=== PATIENT | female | born 1965 | race Caucasian/White ===

== ENCOUNTER 2019-02-11 09:50 | Inpatient (IN) | payer BC, OTHER ==
[~2019-02-11] VITALS: Ht 157.5 cm; Wt 53.1 kg
[2019-02-11 10:00] VITALS: BP_SYST 122
--- NOTE | 2019-02-11 10:50 | NUR ---
Patient triaged and placed in ER bed 6. VSS and patient appears in no acute distress at this time. Accompanied by and medical care manager, notified of need for ER evaluation
[2019-02-11 10:58] LABS: BASOPHILS % (AUTO) 0.1 % (0.0-2.0); EOSINOPHILS % (AUTO) 0.2 % (0.0-4.0); HEMATOCRIT 41.8 % (36-48); HEMOGLOBIN 13.7 g/dL (12.0-16.0); LYMPHOCYTES # (AUTO) 1.1 K/uL (1.0-5.5); LYMPHOCYTES % (AUTO) 10.3 % (20.5-51.5); MEAN CORPUSCULAR HEMOGLOBIN 29 pg (27-31); MEAN CORPUSCULAR HGB CONC 33 % (32-36); MEAN CORPUSCULAR VOLUME 90 fL (79.0-98.0); MONOCYTES # (AUTO) 0.5 K/uL (0.0-1.0); MONOCYTES % (AUTO) 4.8 % (1.7-9.3); NEUTROPHILS # (AUTO) 9.4 K/uL (1.8-7.7); NEUTROPHILS % (AUTO) 84.6 % (40.0-70.0); PLATELET COUNT (AUTO) 395 K/uL (130-430); RED BLOOD CELL COUNT(AUTO) 4.67 MIL/uL (4.2-6.2); RED CELL DISTRIBUTION WIDTH 13.7 % (9.0-15.0); WHITE BLOOD COUNT (AUTO) 11.1 K/uL (4.8-10.8)
[2019-02-11 10:59] LABS: ANION GAP 10 (5-15); CALCIUM 9.8 mg/dL (8.4-11.0); CHLORIDE 104 mmol/L (98-107); CREATININE 0.78 mg/dL (0.55-1.30); GLUCOSE 117 mg/dL (70-99); SODIUM SERUM 142 mmol/L (136-145); UREA NITROGEN, BLOOD 11 mg/dL (8-21)
[2019-02-11 11:01] LABS: GFR AFRICAN AMERICAN 99 mL/min (>90)
--- NOTE | 2019-02-11 11:02 | NUR ---
Patient comes to ER in personal vehicle, accompanied by and caregiver, patient is AOx1 with early onset alzheimers, verbal and ambulatory. Patient has complaint of pain on LT lower leg radiating up to back area. Full ROM, pulses palpable and regular. No redness or heat noted. No other complaint or injury at this time.
[2019-02-11 11:08] LABS: ALANINE AMINOTRANSFERASE 21 U/L (12-78); ALBUMIN 3.9 g/dL (3.4-4.8); ASPARTATE AMINOTRANSFERASE 30 U/L (10-37); TOTAL BILIRUBIN 0.4 mg/dL (0.0-1.0)
--- NOTE | 2019-02-11 11:20 | NUR ---
DR KHAN at bedside for ER evaluation
--- NOTE | 2019-02-11 12:00 | NUR ---
16# FR In and Out catheter with use of sterile technique. Immediate return of 100 ml urine noted. Urine sample collected and sent to lab. Pt tolerated procedure . Patient unable to toilet self.
[2019-02-11 12:13] LABS: BILIRUBIN,URINE NEGATIVE (NEGATIVE); COLOR,URINE YELLOW (YELLOW); GLUCOSE,URINE NEGATIVE (NEGATIVE); KETONES,URINE 1+ (NEGATIVE); LEUKOCYTE ESTERASE ,URINE 1+ (NEGATIVE); NITRITE, URINE NEGATIVE (NEGATIVE); PROTEIN URINE NEGATIVE (NEGATIVE); UROBILINOGEN,URINE 0.2 (0.2-1.0)
[2019-02-11 12:15] LABS: BLOOD, URINE TRACE (NEGATIVE); CLARITY/URINE HAZY (CLEAR)
[2019-02-11 12:20] LABS: BACTERIA,URINE MODERATE /HPF (None Seen); MUCUS,URINE 1+ /LPF (None Seen)
[2019-02-11] MEDS ORDERED: NACL 0.9% 1,000 ML IV ONE ×2 (13:15→16:00)
[2019-02-11] MEDS ORDERED: cefTRIAXone 1 GM IVPB PREMIX 50 ML IV ONE (13:15)
--- NOTE | 2019-02-11 13:30 | NUR ---
Patient resting in bed, caregive is at bedside, no signs of distress noted, will continue to monitor.
--- NOTE | 2019-02-11 15:00 | NUR ---
Patient is resting in bed, no signs of distress noted, will continue to monitor.
[2019-02-11] MEDS ORDERED: VANCOMYCIN HCL 1,000 MG in NS 250 ML IV ONE (16:00)
--- NOTE | 2019-02-11 16:30 | NUR ---
Medicated per MD orders. IVF infusing with no s/s of infiltration at this time. Will cont to monitor
[2019-02-11] MEDS ORDERED: VANCOMYCIN HCL 1000 MG/VIAL IV ONE (17:54)
--- NOTE | 2019-02-11 18:00 | NUR ---
Patient resting in bed, caregiver at bedside, no signs of distress noted, will continue to monitor.
--- NOTE | 2019-02-11 19:11 | NUR ---
ADMIT NOTE Received pt from ER to the floor with a diagnosis of UTI POS SEPSIS. Admission process initiated. patient oriented to pain management, safety and call light-teach back done.
--- NOTE | 2019-02-11 19:20 | NUR ---
Patient admitted to care of DR Romo. Admitted to [facility] unit. Patient placed in [facility] bed 102A, tolerated well with minimal discomfort, patient showing no signs of distress. Belongings list completed. Summary report printed. Bedside report given and plan of care endorsed to [facility] RN.
--- NOTE | 2019-02-11 19:30 | NUR ---
OPENING NOTE Patient and bedside report was received from day shift nurse. Patient is AAO x 3, resting in bed with no s/s of acute distress. Sister in law, Eliz, at bedside. Plan of care discussed. Safety and fall precautions in place. Bed alarm on. Call light with patient, educated and encouraged pt. on how to use. Will continue to monitor.
[2019-02-11] MEDS ORDERED: OLAN2.5T29 PO (19:35)
[2019-02-11] MEDS ORDERED: MECL12.584 PO (19:35)
[2019-02-11] MEDS ORDERED: CITA40TA22 PO (19:35)
[2019-02-11] MEDS ORDERED: MEMA5TAB PO (19:35)
--- NOTE | 2019-02-11 19:35 | NUR ---
HOME MED LIST COLLECTED AND RECORDED Patient's home medication list was requested; patient's sister in law, Eliz at bedside, stated she had the patient's medication bottles and belongings she was going to take home. Medications were recorded in patient's EMR.
[2019-02-11 19:56] VITALS: BP_SYST 116
[2019-02-11] MEDS ORDERED: KCL 20 mEq in D5/0.45NS 1000mL 1,000 ML IV ONE (19:56)
[2019-02-11 20:00] VITALS: BP_SYST 116
[2019-02-11] MEDS: KCL 20 mEq in D5/0.45NS 1000mL 1,000 ML IV SCH (20:35)
--- NOTE | 2019-02-11 20:35 | NUR ---
IV FLUIDS Patient's IV fluids were administered as ordered. Educated pt. regarding IVF. See EMAR. Family at bedside. Encouraged call light use for any needs. Will continue with plan of care.
--- NOTE | 2019-02-11 22:00 | NUR ---
ADVANCED DIRECTIVE Requested patient's spouse, Seferino, to bring a copy of the advanced directive.
[2019-02-11] MEDS ORDERED: CEFEPIME 1 GM/VIAL (MAXIPIME) ONE (23:40)
[2019-02-12] MEDS: CEFEPIME 1 GM in D5W 50 ML IV SCH ×4 (00:27→21:24)
--- NOTE | 2019-02-12 00:27 | NUR ---
IV ABX IV abx administered as ordered. See EMAR for details.
--- NOTE | 2019-02-12 02:06 | NUR ---
SLEEPING Patient is sleeping at this time, visible chest rise and fall. No s/s of acute distress. Safety and fall precautions in place. Bed alarm on. Call light with patient. Will monitor.
[2019-02-12 03:59] VITALS: BP_SYST 120
[2019-02-12] MEDS ORDERED: CEFEPIME 1 GM/VIAL (MAXIPIME) ONE (04:17)
--- NOTE | 2019-02-12 04:34 | NUR ---
SLEEPING Patient appears to be sleeping, visible chest rise and fall. No s/s of acute distress. Safety and fall precautions are in place. Bed alarm on. Call light with patient. Will monitor.
[2019-02-12] MEDS: KCL 20 mEq in D5/0.45NS 1000mL 1,000 ML IV SCH ×2 (06:01→11:47)
[2019-02-12 07:13] LABS: BASOPHILS % (AUTO) 0.3 % (0.0-2.0); EOSINOPHILS # (AUTO) 0.1 K/uL (0.0-0.4); EOSINOPHILS % (AUTO) 1.3 % (0.0-4.0); HEMATOCRIT 34.6 % (36-48); HEMOGLOBIN 11.4 g/dL (12.0-16.0); LYMPHOCYTES # (AUTO) 2.1 K/uL (1.0-5.5); LYMPHOCYTES % (AUTO) 33.2 % (20.5-51.5); MEAN CORPUSCULAR HEMOGLOBIN 30 pg (27-31); MEAN CORPUSCULAR HGB CONC 33 % (32-36); MEAN CORPUSCULAR VOLUME 90 fL (79.0-98.0); MONOCYTES # (AUTO) 0.5 K/uL (0.0-1.0); MONOCYTES % (AUTO) 8.2 % (1.7-9.3); NEUTROPHILS # (AUTO) 3.6 K/uL (1.8-7.7); PLATELET COUNT (AUTO) 305 K/uL (130-430); RED BLOOD CELL COUNT(AUTO) 3.85 MIL/uL (4.2-6.2); WHITE BLOOD COUNT (AUTO) 6.2 K/uL (4.8-10.8)
[2019-02-12 07:22] LABS: CALCIUM 8.2 mg/dL (8.4-11.0); CREATININE 0.68 mg/dL (0.55-1.30); POTASSIUM 3.7 mmol/L (3.5-5.1)
--- NOTE | 2019-02-12 07:50 | NUR ---
am notes received pt in bed. a/ox2. vitals stable. not in acute distress. ivf infusing well. repositioned with pillow.res even and unlabored. sr on tele. safety and fall precautions in place. needs attended. kept comfortable. will continue to monitor
[2019-02-12 07:56] VITALS: BP_SYST 112
[2019-02-12] MEDS: MECLIZINE HCL 25 MG TABLET (ANITVERT) PO SCH ×2 (08:46→21:25)
[2019-02-12] MEDS: OLANZapine 2.5 MG TABLET PO SCH (08:46)
[2019-02-12] MEDS: CITALOPRAM HYDROBROMIDE 20 MG TABLET PO SCH (08:46)
[2019-02-12] MEDS: MEMANTINE HCL 5 MG TABLET PO SCH ×2 (08:46→21:25)
[2019-02-12 11:17] VITALS: BP_SYST 113
--- NOTE | 2019-02-12 11:49 | NUR ---
rounds pt stable. no s/s of pain or distress. pt cleaned and repositioned. not in acute distres. kept comfortable will continue to m onitor
[2019-02-12 15:23] VITALS: BP_SYST 95
--- NOTE | 2019-02-12 16:10 | NUR ---
rounds pt stable . denies any pain or orther discomfort. pt is incontinent. pt cleaned and repositioned. ivf infusing well as ordered. due antibiotic given as ordered. no reaction noted. will continue to monitor
--- NOTE | 2019-02-12 19:20 | NUR ---
closing notes pt stable . denies any pain or orther discomfort. pt is incontinent. pt cleaned and repositioned. ivf infusing well as ordered. report given to night rn
[2019-02-12 20:10] VITALS: BP_SYST 123
--- NOTE | 2019-02-12 20:33 | NUR ---
PATIENT AWAKE ALERT SITTING UP IN BED Family @ the bedside , PT verbally indicative on mech soft po diet HOB elevated assist as needed chest movement SYMMETRICAL unlabored skin dry warm .
[2019-02-13 00:31] VITALS: BP_SYST 108
[2019-02-13] MEDS: KCL 20 mEq in D5/0.45NS 1000mL 1,000 ML IV SCH (06:34)
[2019-02-13] MEDS: CEFEPIME 1 GM in D5W 50 ML IV SCH ×2 (06:35→14:20)
[2019-02-13 08:00] VITALS: BP_SYST 128
--- NOTE | 2019-02-13 08:00 | NUR ---
RN NOTE PATIENT IS RESTING IN BED, ALERT ORIENTED X2, PATIENT IS DEMENTED. OPEN EYES. DENIES PAIN OR DISCOMFORT. PATIENT VITAL SIGNS WERE MEASURED. PATIENT WAS ASSESSED, BED ALARM IS ON, BED AT LOW POSITION AND CALL LIGHT WITHIN REACH, WILL CONTINUE TO MONTIR
[2019-02-13] MEDS: OLANZapine 2.5 MG TABLET PO SCH (09:10)
[2019-02-13] MEDS: MEMANTINE HCL 5 MG TABLET PO SCH (09:10)
[2019-02-13] MEDS: CITALOPRAM HYDROBROMIDE 20 MG TABLET PO SCH (09:10)
[2019-02-13] MEDS: MECLIZINE HCL 25 MG TABLET (ANITVERT) PO SCH (09:11)
--- NOTE | 2019-02-13 10:00 | NUR ---
RN NOTE PATIENT IS RESTING IN BED, DENIES PAIN OR DISCOMFORT. PATIENT WAS REPOSITIONED IN BED, BED SHEETS AND CHUCKS WERE CHANGED. PATIENT WAS GIVEN HER MEDICATIONS. WILL CONTINUE TO MONITOR.
[2019-02-13 11:31] VITALS: BP_SYST 129
--- NOTE | 2019-02-13 11:45 | NUR ---
Nutrition Update Panda Scale 18 noted. Pt admitted for sepsis, possible UTI. Diet: mechanical soft BMI: 21.4 kg/m2 RD to follow per nutrition care standards.
--- NOTE | 2019-02-13 12:00 | NUR ---
RN NOTE PATIENT WAS SERVED HER LUNCH, PATIENT WAS GIVEN HER REGLAN IVP WHEN ORDERED. PATIENT NOW DENIES NAUSEA AND HAS NO VOMITING SINCE THEN, WILL SERVE HER CLEAR LIQUID DIET AND IF TOLERATED IT WILL ADVANCE THE DIET. PATIENT DRESSING ON HER LEFT FOREARM WAS CHANGED. PLEASE REFER TO WOUND CARE SECTION. WILL CONTINUE TO MONITOR.
--- NOTE | 2019-02-13 14:00 | NUR ---
RN NOTE PATIENT IS RESTING IN BED, BY BEDSIDE, PATIENT WAS INFORMED ABOUT THEIR BEING DISCHARGED HOME, PATIENT DENIES PAIN OR DISCOMFORT. PATIENT WAS EDUCATED ABOUT FALL PREVENTION, WILL CONTINUE TO MONITOR.
[2019-02-13 15:21] VITALS: BP_SYST 97
[2019-02-13 16:20] VITALS: BP_SYST 119
--- NOTE | 2019-02-13 16:55 | NUR ---
RN CLOSING NOTE PATIENT IS RESTING IN BED, BY BEDSIDE, PATIENT WAS GIVEN HER DISCHARGE INSTRUCTION REGARDING CONTACTING HER PRIMARY CARE PHYSICIAN, PREFERED THAT HE MAKES THE APPOINTMENT BY HIMSELF. PATIENT SALINE LOCK WAS REMOVED A BANDAGE WAS PLACED IN PLACE. NO BLEEDING FROM THE SITE. PATIENT WAS THEN EXPLAINED HER DISCHARGE INSTRUCTION AND WAS EDUCATED WITH HER OF HOW TO MINIMIZE THE CHANCE OF GETTING UTI. PATIENT WAS THEN ESCORTED TO THE PARKING LOT WHERE THE PATIENT GOT IN HER PRIVATE AUTO DRIVEN HOME BY HER AND PHILLIP Doan SIGN OFF PATIENT 'S CARE.
--- NOTE | 2019-02-17 15:05 | NUR ---
Discharge Follow Up Phone Call GAMBLING [employer]ER phoned the number listed for patient, , and spoke with patient's caregiver. She stated that patient was back to baseline. She was unsure if a follow up appointment had been made with patient's PCP. She will ask patient's . No questions or concerns.
== END 2019-02-13 16:55 | disposition home or self-care (01) | DRG 689 ==
LOC: SED 09:50 → STU 17:56 → SMU 02-12 13:56
PROVIDERS: ADMIT Family Medicine; ATTEND Family Medicine
DX: N39.0 Urinary tract infection, site not specified (principal); G93.41 Metabolic encephalopathy; E86.0 Dehydration; D64.9 Anemia, unspecified; G30.9 Alzheimer's disease, unspecified; F02.80 Dementia in other diseases classified elsewhere, unspecified severity, without behavioral disturbance, psychotic disturbance, mood disturbance, and anxiety
CPT/HCPCS: 36415; 71045; 72170-TC; 72192-TC; 73552; 80048; 80053; 81000-TC; 83605; 84484; 85025; 85379; 85610-TC; 85730-TC; 87040-TC; 87086; 93005; 96365; 96366; 96367; 97112-GP; 97163; 99285; G0378; J0692; J0696; J3370; J7060; J8597

== ENCOUNTER 2019-05-09 06:55 | Inpatient (IN) | payer BC ==
[~2019-05-09] VITALS: Ht 157.5 cm; Wt 59.0 kg
[~2019-05-09 06:55] MED LIST: CITA40TA22 PO; MECL12.584 PO; MEMA5TAB PO; OLAN2.5T29 PO
[2019-05-09 07:00] VITALS: BP_SYST 134
[2019-05-09] MEDS ORDERED: NACL 0.9% 1,000 ML IV ONE (07:00)
[2019-05-09] MEDS ORDERED: levETIRAcetam 1,000 MG IV BAG 100 ML IV ONE (07:00)
--- NOTE | 2019-05-09 07:00 | NUR ---
Placed in room 2 . Placed on benzene operator, blood pressure machine and pulse oximeter. To gown for exam. Side rails up.
--- NOTE | 2019-05-09 07:00 | NUR ---
Seizure precautions in place. Seizure pads applied to gurney. Side rails up.
--- NOTE | 2019-05-09 07:05 | NUR ---
Medication reconciliation completed with information provided by family. Any prior medication reconciliation on file was reviewed and corrected.
--- NOTE | 2019-05-09 07:10 | NUR ---
PT BIB EMS C/O SEIZURE ACTIVITY.PT H/O DEMENTIA AND SEIZURE.PT IS POSTICTAL UNABLE TO STATE EVENTS PRIOR TO SEIZURE.
--- NOTE | 2019-05-09 07:25 | NUR ---
# 14 FR In and Out catheter with use of sterile technique. Ary phleb at bedside as maribeth. Immediate return of 20 ml clear yellow urine noted. Urine sample collected and sent to lab. Pt tolerated procedure well. Patient unable to toilet self.
[2019-05-09] MEDS ORDERED: levETIRAcetam 1,000 MG in NS 100 ML IV ONE (07:30)
[2019-05-09 07:36] LABS: BASOPHILS % (AUTO) 0.6 % (0.0-2.0); EOSINOPHILS # (AUTO) 0.2 K/uL (0.0-0.4); EOSINOPHILS % (AUTO) 2.6 % (0.0-4.0); HEMATOCRIT 38.5 % (36-48); HEMOGLOBIN 12.8 g/dL (12.0-16.0); LYMPHOCYTES # (AUTO) 2.2 K/uL (1.0-5.5); MEAN CORPUSCULAR HEMOGLOBIN 30 pg (27-31); MEAN CORPUSCULAR HGB CONC 33 % (32-36); MEAN CORPUSCULAR VOLUME 90 fL (79.0-98.0); MONOCYTES # (AUTO) 0.5 K/uL (0.0-1.0); MONOCYTES % (AUTO) 6.8 % (1.7-9.3); NEUTROPHILS # (AUTO) 4.1 K/uL (1.8-7.7); PLATELET COUNT (AUTO) 340 K/uL (130-430); RED BLOOD CELL COUNT(AUTO) 4.27 MIL/uL (4.2-6.2); RED CELL DISTRIBUTION WIDTH 13.5 % (9.0-15.0)
[2019-05-09 07:47] LABS: ANION GAP 5 (5-15); CALCIUM 9.1 mg/dL (8.4-11.0); CHLORIDE 105 mmol/L (98-107); CREATININE 0.75 mg/dL (0.55-1.30); GLUCOSE 87 mg/dL (70-99); POTASSIUM 4.2 mmol/L (3.5-5.1); SODIUM SERUM 137 mmol/L (136-145); UREA NITROGEN, BLOOD 14 mg/dL (8-21)
[2019-05-09 07:48] LABS: GFR AFRICAN AMERICAN 103 mL/min (>90)
--- NOTE | 2019-05-09 07:49 | NUR ---
ER at bedside examining patient.
[2019-05-09 07:52] LABS: ALANINE AMINOTRANSFERASE 33 U/L (12-78); ALBUMIN 3.4 g/dL (3.4-4.8); ASPARTATE AMINOTRANSFERASE 22 U/L (10-37); TOTAL BILIRUBIN 0.3 mg/dL (0.0-1.0)
[2019-05-09 07:53] LABS: BILIRUBIN,URINE NEGATIVE (NEGATIVE); BLOOD, URINE 1+ (NEGATIVE); CLARITY/URINE CLEAR (CLEAR); COLOR,URINE YELLOW (YELLOW); GLUCOSE,URINE NEGATIVE (NEGATIVE); KETONES,URINE NEGATIVE (NEGATIVE); LEUKOCYTE ESTERASE ,URINE NEGATIVE (NEGATIVE); NITRITE, URINE NEGATIVE (NEGATIVE); PH,URINE 5.5 (5.0-8.0); PROTEIN URINE NEGATIVE (NEGATIVE); UROBILINOGEN,URINE 0.2 (0.2-1.0)
[2019-05-09 07:57] LABS: ALCOHOL, BLOOD < 3 mg/dL (<10)
--- NOTE | 2019-05-09 08:00 | NUR ---
Pt tolerated medciation well. continuing to monitor
[2019-05-09 08:03] LABS: BACTERIA,URINE FEW /HPF (None Seen); MUCUS,URINE 1+ /LPF (None Seen); WBC,URINE 0-3 /HPF (0-3)
[2019-05-09 08:05] LABS: BARBITURATE, URINE NEGATIVE (NEG <=200); BENZODIAZEPINE, URINE NEGATIVE (NEG <=150); CANNABINOID, URINE NEGATIVE (NEG <=50); COCAINE, URINE NEGATIVE (NEG <=150); METHAMPHETAMINES SCREEN,URINE NEGATIVE (NEG <=500); OPIATE, URINE NEGATIVE (NEG <=100); PHENCYCLIDINE SCREEN,URINE NEGATIVE (NEG <=25); UR TRICYCLIC ANTIDEPRESSANTS NEGATIVE (NEG <=300); URINE AMPHETAMINE NEGATIVE (NEG <=500); URINE METHADONE NEGATIVE (NEG <=200); URINE OXYCODONE SCREEN NEGATIVE (NEG <=100); URINE PROPOXYPHENE SCREEN NEGATIVE (NEG <=300)
--- NOTE | 2019-05-09 09:15 | NUR ---
Patient will be admitted to care of . Admitted to medsurg unit. Will go to room 135. Summary report printed. Report will be given at bedside.
--- NOTE | 2019-05-09 09:45 | NUR ---
ADMIT NOTE Received pt from ER to the floor with a diagnosis of SEIZURE. Admission process initiated. patient oriented to pain management, safety and call light-teach back done.
[2019-05-09 10:05] VITALS: BP_SYST 142
--- NOTE | 2019-05-09 10:22 | NUR ---
opening note report was endorsed by admission nurse. Patient appears to be resting with both eyes closed breathing is equal and non labored. Patient has all safety and seizure precautions in place. Patient is close to nurses station. Patient has no other needs at this time. will continue to monitor.
[2019-05-09 11:34] VITALS: BP_SYST 124
[2019-05-09] MEDS ORDERED: OLANZapine 2.5 MG TABLET PO ONE (12:00)
[2019-05-09] MEDS ORDERED: MEMANTINE HCL 5 MG TABLET PO ONE (12:00)
--- NOTE | 2019-05-09 12:10 | NUR ---
rn rounding Patients family is at bed side. Patient is laying in bed no signs of any distress, breathing is equal and non labored. Patient shows no signs of any distress,breathing is equal and non labored. Patient shows no signs of current seizure all seizure precautions in place. patient is close to nurses station. will continue to monitor.
[2019-05-09] MEDS ORDERED: CITALOPRAM HYDROBROMIDE 20 MG TABLET PO ONE (12:15)
--- NOTE | 2019-05-09 14:08 | NUR ---
called patients family for MRI check list left message with call back phone number no information was given on message. waiting for call back . Patient is laying in bed no signs of any distress, breathing is equal and nonlabored. Patient has all safety precautions in place and seizure precautions in place. Patient is close to nurses station. will continue to monitor.
[2019-05-09 15:30] VITALS: BP_SYST 133
--- NOTE | 2019-05-09 16:11 | NUR ---
RN rounding Patient's family at bed side. Patients spouse given check list for MRI, Tech states patient will have MRI done 05/10/19 in the AM, family made aware. Patient assisted to bathroom and back to bed with spouse gait is weak but steady with assistance. educated installation supervisor light for assistance. call light is with patient. Patient is close to nurses station. Patient has all safety and seizure precautions in place.
--- NOTE | 2019-05-09 18:32 | NUR ---
rn closing note Patient appears to be resting with both eyes closed breathing is equal and non labored. Dr. Serrano came to see the patient. Patient also had EGG done but tech states that patient was unable to close to eyes. Patient has difficulty following directions. Patient was able to ambulate to restroom with spouse. Patient has all safety precautions in place as well as seizure precautions in place. Patient is close to nurses station. will endorse report to [facility] night nurse. Patient has no other needs at this time. Will contiue to monitor.
--- NOTE | 2019-05-09 19:25 | NUR ---
OPENING NOTES Pt and endorsement received from day shift nurse. Pt is resting in bed with both eyes closed, with visible chest rise and fall with unlabored breathing noted. and daughter at bedside. Pt on saline lock on left wrist G20. No complains of pain at this time. No signs of acute distress or SOB noted. Safety precautions in place with 3 side rails up, wheels locked, bed alarm on and in lowest level. Will continue to monitor.
[2019-05-09] MEDS: MEMANTINE HCL 5 MG TABLET PO SCH ×2 (21:00→21:07)
[2019-05-09 21:02] VITALS: BP_SYST 113
--- NOTE | 2019-05-09 21:07 | NUR ---
NAMENDA NOT GIVEN Tried to give pt her scheduled medication James pt is very drowsy and won't open her mouth. Discarded medication at medication destroyer bottle since it was opened and can't be returned to [facility]. Will continue to monitor.
[2019-05-09] MEDS: levETIRAcetam 500 MG in NS 100 ML IV SCH (21:08)
--- NOTE | 2019-05-09 23:30 | NUR ---
ROUNDS Pt is awake and lying in bed. Asked pt's name and date of but pt only states "okay," pt was unable to answer the questions. No complains of pain and no signs of grimacing or moaning. No signs of acute distress or SOB noted. Seizure pads and safety precautions in place. Call light with pt.
[2019-05-09 23:46] VITALS: BP_SYST 126
--- NOTE | 2019-05-10 02:52 | NUR ---
ROUNDS Pt is resting in bed with both eyes closed, with visible chest rise and fall with unlabored breathing noted. No complains of pain and no signs of acute distress noted. Seizure pads and safety precautions in place. Call light with pt. Will continue to monitor.
--- NOTE | 2019-05-10 04:10 | NUR ---
ROUNDS Pt is resting in bed with both eyes closed, with visible chest rise and fall with unlabored breathing noted. No signs of acute distress noted. No needs at this time. Seizure pads and safety precautions in place. Call light with pt. Will continue to monitor.
--- NOTE | 2019-05-10 06:29 | NUR ---
CLOSING NOTES Pt is resting in bed with both eyes closed, with visible chest rise and fall with unlabored breathing noted. No complains of pain or signs of grimacing or moaning at this time. Pt is easily arousable. No signs of acute distress or SOB noted. All needs attended throughout the shift. Safety precautions in place with 3 side rails up, wheels locked, bed alarm on and in lowest level. Call light with pt. Will endorse to day shift nurse.
--- NOTE | 2019-05-10 06:52 | NUR ---
Nutrition Update Panda Scale 15 noted. Pt admitted for Seizure Diet: NPO BMI: 23.8 kg/m2 RD to follow per nutrition care standards.
[2019-05-10 08:15] VITALS: BP_SYST 114
[2019-05-10] MEDS ORDERED: CITALOPRAM HYDROBROMIDE 20 MG TABLET PO SCH (09:00)
[2019-05-10] MEDS ORDERED: OLANZapine 2.5 MG TABLET PO SCH (09:00)
[2019-05-10] MEDS: MEMANTINE HCL 5 MG TABLET PO SCH (09:00)
--- NOTE | 2019-05-10 09:20 | NUR ---
Routine Patient taken via wheelchair for MRI.
[2019-05-10] MEDS ORDERED: LORazepam 2 MG/ML VIAL IVP ONE (10:15)
--- NOTE | 2019-05-10 10:27 | NUR ---
Routine Patient given ativan per order. Patient in MRI truck; stable.
--- NOTE | 2019-05-10 11:10 | NUR ---
Routine Patient returned to unit in stable condition.
[2019-05-10] MEDS: levETIRAcetam 500 MG in NS 100 ML IV SCH (11:18)
--- NOTE | 2019-05-10 11:19 | NUR ---
Routine Patient ambulated to bathroom with her 's assist and back to bed. Scheduled IV med given per order. Patient stable at this time.
[2019-05-10 12:16] VITALS: BP_SYST 126
--- NOTE | 2019-05-10 14:45 | NUR ---
Routine assisted patient to bathroom and back to bed. Patient stable at this time.
[2019-05-10] MEDS ORDERED: LEVE500T9 (16:29)
[2019-05-10 16:33] VITALS: BP_SYST 110
[2019-05-10 17:02] VITALS: BP_SYST 110
--- NOTE | 2019-05-10 19:41 | NUR ---
discharge late entry due to patient care 1813 here to take patient home. patient has dementia. discharge instruction including seizure precaution and safety during seizure and new medication side effect discussed with who verbalized understanding. Wheeled out to aprivate car at 1813
== END 2019-05-10 18:14 | disposition home or self-care (01) | DRG 101 ==
LOC: SED 06:55 → SMU 09:12
PROVIDERS: ADMIT Internal Medicine Hospice and Palliative Medicine; ATTEND Internal Medicine Hospice and Palliative Medicine
DX: G40.89 Other seizures (principal); G30.8 Other Alzheimer's disease; F02.80 Dementia in other diseases classified elsewhere, unspecified severity, without behavioral disturbance, psychotic disturbance, mood disturbance, and anxiety; Z79.899 Other long term (current) drug therapy
CPT/HCPCS: 36415; 70450-TC; 70551; 80053; 80307; 81000-TC; 85025; 93005; 95816; 96361; 96374; 99285; G0482; J1953; J2060

== ENCOUNTER 2020-12-23 17:07 | Emergency (ER) | payer BC ==
[~2020-12-23] VITALS: Ht 157.5 cm; Wt 53.1 kg
[~2020-12-23 17:07] MED LIST changes: +LEVE500T9; +MECL-174 PO; -MECL12.584 PO
[2020-12-23 17:12] VITALS: BP_SYST 93
[2020-12-23 17:50] VITALS: BP_SYST 110
== END 2020-12-23 17:50 | disposition home or self-care (01) ==
LOC: SED 17:07
DX: S00.83XA Contusion of other part of head, initial encounter (principal); Z79.899 Other long term (current) drug therapy; W18.12XA Fall from or off toilet with subsequent striking against object, initial encounter; Y93.89 Activity, other specified; Y92.89 Other specified places as the place of occurrence of the external cause; Y99.8 Other external cause status
CPT/HCPCS: 99281